=== PATIENT | male | born 1980 | race Caucasian/White ===

== ENCOUNTER 2017-08-30 08:31 | Outpatient (CLI) | payer SELFPAY | END 2017-08-30 08:32 | disposition home or self-care (01) | LOC: LAB 08:31 | DX: Z02.81 Encounter for paternity testing (principal) ==

== ENCOUNTER 2018-09-10 18:11 | Emergency (ER) | payer OTHER ==
[2018-09-10 18:22] VITALS: BP 142/95
--- NOTE | 2018-09-10 18:48 | ED Physician Documentation ---
PD HPI URI - Stated complaint Stated Complaint: SINUS PX/V - Chief complaint Chief Complaint: General - History obtained from History obtained from: Patient - History of Present Illness Timing - onset: Today Timing duration: Days (1) Timing details: Gradual onset Pain level max: 0 Pain level now: 0 Associated symptoms: Nasal congestion, Rhinorrhea, Dry cough. No: Fever, Ear pain, Productive cough Contributing factors: Sick contact Improves by: Rest Worsened by: Activity Recently seen: Not recently seen - Additional information Additional information: Patient states that he tried to go to medical on basis as directed by his commanding officer, but they were unable to see him and sent him here Review of Systems Constitutional: denies: Fever, Chills Respiratory: reports: Cough GI: denies: Vomiting Skin: denies: Rash Musculoskeletal: denies: Neck pain, Back pain PD PAST MEDICAL HISTORY - Past Medical History Cardiovascular: Hypertension - Past Surgical History General: Appendectomy - Present Medications Home Medications: Ambulatory Orders Medication Instructions Recorded Confirmed Benzonatate [Tessalon Perle] 100 - 200 mg PO TID PRN #30 capsule 09/10/18 Cetirizine HCl/Pseudoephedrine 1 each PO BID PRN #30 tab.er.12h 09/10/18 [Zyrtec-D Tablet] - Allergies Allergies/Adverse Reactions: Allergies Allergy/AdvReac Type Severity Reaction Status Date / Time No Known Drug Allergies Allergy Verified 09/10/18 18:18 - Social History Does the pt smoke?: No Smoking Status: Never smoker PD ED PE NORMAL - Vitals Vital signs reviewed: Yes - General General: Alert and oriented X 3, No acute distress - HEENT HEENT: PERRL, Ears normal, Moist mucous membranes, Pharynx benign, Other (Mild facial petechiae) - Neck Neck: Supple, no meningeal sign - Cardiac Cardiac: RRR, Strong equal pulses - Respiratory Respiratory: No respiratory distress, Clear bilaterally - Abdomen Abdomen: Soft, Non tender, Non distended - Derm Derm: Warm and dry, No rash - Neuro Neuro: Alert and oriented X 3 Results - Vitals Vitals: Vital Signs - 24 hr 09/10/18 18:15 Temperature 36.6 C Heart Rate 52 L Respiratory 16 Rate Blood Pressure 142/95 H O2 Saturation 97 Oxygen O2 Source Room air PD MEDICAL DECISION MAKING - ED course Complexity details: considered differential, d/w patient ED course: Patient with what appears to be a viral upper respiratory infection. No evidence of pneumonia. Lungs are clear to auscultation bilaterally. Did have an exceptionally hard coughing fit followed by vomiting earlier today and now has mild petechiae on the face. Tolerating p.o. without difficulty here. No hypoxia. No respiratory distress. Patient counseled regarding signs and symptoms for which I believe and urgent re-evaluation would be necessary. Patient with good understanding of and agreement to plan and is comfortable going home at this time This document was made in part using voice recognition software. While efforts are made to proofread this document, sound alike and grammatical errors may occur. Departure - Departure Disposition: Home, Self Care Clinical Impression: Viral URI with cough Condition: Good Instructions: ED URI Viral Follow-Up: your,doctor in 1 week [Other] Prescriptions: Benzonatate [Tessalon Perle] 100 - 200 mg PO TID PRN #30 capsule PRN Reason: Cough Cetirizine HCl/Pseudoephedrine [Zyrtec-D Tablet] 1 each PO BID PRN #30 tab.er.12h PRN Reason: nasal congestion Comments: Drink plenty of fluids and rest. Return if you worsen. Follow-up with your doctor for further care. Discharge Date/Time: 09/10/18 18:52
== END 2018-09-10 18:52 | disposition home or self-care (01) ==
LOC: ED 18:11
DX: J06.9 Acute upper respiratory infection, unspecified (principal); R23.3 Spontaneous ecchymoses; I10 Essential (primary) hypertension
CPT/HCPCS: 99283

== ENCOUNTER 2019-02-14 09:10 | Emergency (ER) | payer OTHER ==
[2019-02-14 09:21] VITALS: BP 139/102
--- NOTE | 2019-02-14 09:31 | ED Physician Documentation ---
PD HPI BACK INJURY - Stated complaint Stated Complaint: BACK PX - History obtained from History obtained from: Patient - History of Present Illness Location: Upper (mid thoracic area hurting for 3 1/2 weeks without noted injury.) Type of injury: No: Fall, Twist, Blunt / blow Timing - onset: How many weeks ago (3 1/2) Timing - duration: Weeks Timing - details: Gradual onset, Still present, Waxing and waning Quality: Pain, Aching Worsened by: Moving. No: Palpating Associated symptoms: No: Fever, Weakness, Numbness, Incontinent of urine Contributing factors: No: Work related Similar symptoms before: Has not had sx before Recently seen: Clinic (has tried several BP meds in the past that did not work well. He started new one Micardis about 1 1/2 months ago. Back pain started couple weeks after without noted injury. Seen by PCP and the Micardis found to have back pain as infrequent side effect. The med is working well on BP though, so patient did not want to stop it, and was referred for PT. No meds Rx for the pain.) Review of Systems Constitutional: denies: Fever, Chills Nose: denies: Rhinorrhea / runny nose, Congestion Throat: denies: Sore throat Cardiac: denies: Chest pain / pressure Respiratory: denies: Cough GI: denies: Abdominal Pain, Nausea, Vomiting Skin: denies: Rash, Lesions Musculoskeletal: reports: Back pain. denies: Neck pain Neurologic: denies: Focal weakness, Numbness PD PAST MEDICAL HISTORY - Past Medical History Cardiovascular: Hypertension - Past Surgical History General: Appendectomy - Present Medications Home Medications: Ambulatory Orders Medication Instructions Recorded Confirmed Benzonatate [Tessalon Perle] 100 - 200 mg PO TID PRN #30 capsule 09/10/18 Cetirizine HCl/Pseudoephedrine 1 each PO BID PRN #30 tab.er.12h 09/10/18 [Zyrtec-D Tablet] Diclofenac Potassium 50 mg PO BID #15 tablet 02/14/19 Tizanidine HCl 4 mg PO TID PRN #20 capsule 02/14/19 - Allergies Allergies/Adverse Reactions: Allergies Allergy/AdvReac Type Severity Reaction Status Date / Time No Known Drug Allergies Allergy Verified 02/14/19 09:21 - Social History Does the pt smoke?: No Smoking Status: Never smoker PD ED PE NORMAL - Vitals Vital signs reviewed: Yes - General General: Alert and oriented X 3, Well developed/nourished - Neck Neck: Supple, no meningeal sign, No adenopathy - Cardiac Cardiac: RRR, No murmur - Respiratory Respiratory: Clear bilaterally - Abdomen Abdomen: Soft, Non tender - Back Back: No spinal TTP (has tender more to left paraspinous area about left T7. ) - Derm Derm: Normal color, Warm and dry, No rash - Extremities Extremities: No tenderness to palpate - Neuro Neuro: Alert and oriented X 3, No motor deficit, No sensory deficit, Normal speech Results - Vitals Vitals: Vital Signs - 24 hr 02/14/19 09:16 Temperature 36.8 C Heart Rate 67 Respiratory 14 Rate Blood Pressure 139/102 H O2 Saturation 98 Oxygen O2 Source Room air - Rads (name of study) thoracic CT Radiology: Prelim report reviewed (No acute process. ), See rad report Procedures - General procedure General procedure: Trigger point injection with Kenalog and Marcaine at left parathoracic muscle level of T7 after cleansing skin, without complication. PD MEDICAL DECISION MAKING - ED course Complexity details: reviewed results (thoracic CT without acute process seen. ), considered differential (seems muscle strain. But no noted injury. Can check imaging to ensure no occult other process. He is on new medication (Micardis) that does list back pain as a small likelyhood to cause back pain (presume myofascial and Epocrates lists as adverse reaction but not gives percentage).), d/w patient Departure - Departure Disposition: 01 Home, Self Care Clinical Impression: Acute thoracic back pain Qualifiers: Back pain laterality: left Qualified Code(s): M54.6 - Pain in thoracic spine Condition: Stable Record reviewed to determine appropriate education?: Yes Instructions: ED Sprain Thoracic Spine Follow-Up: [facility] [Provider Group] Prescriptions: Diclofenac Potassium 50 mg PO BID #15 tablet Tizanidine HCl 4 mg PO TID PRN #20 capsule PRN Reason: Spasms Comments: Heat and gentle stretching. To physical therapy as arranged by your primary ca re. Use diclofenac anti-inflammatory twice daily for a week and tizanidine muscle relaxant 2-3 times a day for a week as well. I also did a local injection with him steroid and anesthetic. We will see if these improve your pain over the next several days and gone by a week. Follow-up with your primary care this coming week to see how much better you are doing and if other treatments are needed. Discharge Date/Time: 02/14/19 11:15
[2019-02-14] MEDS ORDERED: NAPROXEN 250 MG TABLET PO STA (10:03)
[2019-02-14] MEDS ORDERED: TRIAMCINOLONE 40 MG/ML VIAL IM STA (10:05)
--- NOTE | 2019-02-14 11:00 | CT Report ---
Reason: mid thoracic pain for 3 weeks; no noted injury Procedure Date: 02/14/2019 Accession Number: [id number] / [id number] Procedure: CT - THORACIC SPINE WO CPT Code: Final Report FULL RESULT: EXAM: CT THORACIC SPINE WITHOUT CONTRAST EXAM DATE: 02/14/2019 10:23 AM. CLINICAL HISTORY: Mid thoracic pain for 3 weeks; no noted injury. COMPARISONS: None available. TECHNIQUE: Thin-section axial images were acquired of the thoracic spine from C7 to L1 without contrast. Post-processing: Coronal and sagittal reformats. Other: None. In accordance with CT protocol optimization, one or more of the following dose reduction techniques were utilized for this exam: automated exposure control, adjustment of mA and/or KV based on patient size, or use of iterative reconstructive technique. FINDINGS: Alignment: There is a very slight convex right curvature which could be positional. No other abnormal alignment. Bones: No fracture or bone lesion. Disk Levels/Facets: C7-T1: Unremarkable. T1-T2: Unremarkable. T2-T3: Unremarkable. T3-T4: Unremarkable. T4-T5: Unremarkable. T5-T6: Unremarkable. T6-T7: Unremarkable. T7-T8: Unremarkable. T8-T9: Unremarkable. T9-T10: Unremarkable. T10-T11: Unremarkable. T11-T12: Unremarkable. T12-L1: Unremarkable. Musculature: Normal. No fatty atrophy. Other: There is a calcified granuloma in the right lung and there are calcified right hilar and right paratracheal lymph nodes consistent with old granulomas disease. IMPRESSION: Negative thoracic spine CT. RADIA
== END 2019-02-14 11:15 | disposition home or self-care (01) ==
LOC: ED 09:10
DX: M54.6 Pain in thoracic spine (principal); I10 Essential (primary) hypertension
CPT/HCPCS: 20552; 72128; 99284; A9270

== ENCOUNTER 2019-06-02 16:40 | Emergency (ER) | payer OTHER ==
--- NOTE | 2019-06-02 17:03 | ED Physician Documentation ---
History of Present Illness - Stated complaint Stated Complaint: COUGH, WHEEZING, CHEST PRESSURE - Chief complaint Chief Complaint: Resp - History obtained from History obtained from: Patient (Patient reports having 10 days of cough congestion, wheezing, feeling short of breath, has been progressively getting worse. He denies fevers, chills, nausea, vomiting. He does complain of posttussive emesis. 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 He denies any smoking history. He denies being exposed to any environmental hazards in his lungs. No sick contacts at home.) Review of Systems Constitutional: denies: Fever, Chills, Fatigue, Sweats Ears: reports: Reviewed and negative Nose: reports: Rhinorrhea / runny nose, Congestion. denies: Sinus pressure / pain Throat: denies: Sore throat Cardiac: reports: Reviewed and negative Respiratory: reports: Dyspnea, Cough, Wheezing GI: denies: Nausea, Vomiting, Diarrhea : denies: Dysuria, Frequency, Hesitancy Skin: denies: Rash, Lesions Musculoskeletal: reports: Reviewed and negative Neurologic: reports: Reviewed and negative Psychiatric: reports: Reviewed and negative PD PAST MEDICAL HISTORY - Past Medical History Cardiovascular: Hypertension Respiratory: None - Past Surgical History General: Appendectomy - Present Medications Home Medications: Ambulatory Orders Medication Instructions Recorded Confirmed Albuterol Sulfate [Proair 90 mcg IH Q4HR PRN #1 aer.pw.bas 06/02/19 Digihaler] Benzonatate 200 mg PO TID PRN #20 capsule 06/02/19 Telmisartan [Micardis] 40 mg PO DAILY 06/02/19 06/02/19 - Allergies Allergies/Adverse Reactions: Allergies Allergy/AdvReac Type Severity Reaction Status Date / Time No Known Drug Allergies Allergy Verified 06/02/19 16:43 - Social History Does the pt smoke?: No Smoking Status: Never smoker PD ED PE NORMAL - General General: Alert and oriented X 3, No acute distress, Well developed/nourished - HEENT HEENT: Atraumatic, PERRL, EOMI, Ears normal, Moist mucous membranes, Pharynx benign - Neck Neck: No adenopathy - Cardiac Cardiac: RRR, No murmur - Respiratory Respiratory: No respiratory distress - Abdomen Abdomen: Soft, Non tender, Non distended - Derm Derm: Normal color, Warm and dry, No rash - Neuro Neuro: Alert and oriented X 3, infant lead teacher 2-12 intact - Psych Psych: Normal mood PD ED PE EXPANDED - Respiratory Respiratory: Wheezing, Rhonchi (Throughout bilaterally) Results - Vitals Vitals: Vital Signs - 24 hr 06/02/19 06/02/19 06/02/19 16:44 18:19 18:33 Temperature 36.3 C L 37.1 C Heart Rate 84 82 65 Respiratory 20 16 18 Rate Blood Pressure 142/92 H 139/98 H O2 Saturation 96 99 Oxygen O2 Source Room air - Rads (name of study) No standard instances Radiology: Final report received (Impression: No acute cardiopulmonary disease seen.) PD MEDICAL DECISION MAKING - ED course Complexity details: re-evaluated patient, d/w patient (Discussed with the patient that he has been afebrile during his cough. Antibiotic treatment is not warranted at this time. We will have the patient do albuterol 2 puffs every 4 hours as needed for shortness of breath, and taking Tessalon Perles to help reduce cough.) Departure - Departure Disposition: 01 Home, Self Care Clinical Impression: Bronchitis Condition: Good Instructions: ED Bronchitis Asthmatic Prescriptions: Albuterol Sulfate [Proair Digihaler] 90 mcg IH Q4HR PRN #1 aer.pw.bas PRN Reason: As Needed Per Provider Orders Benzonatate 200 mg PO TID PRN #20 capsule PRN Reason: Cough Comments: Your chest x-ray came back as normal today, it did not show any signs of any pneumonia. Given that you have not had any fevers over the last 10 days during this I am going to treat this as bronchitis. I am going to prescribe you Albuterol MDI to take 1 to 2 puffs every 4 hours for shortness of breath. I am also prescribing you then Benzonotate 200 mg tablets to take up to 3 times a day for cough, I want you to take 1 before bedtime so you can sleep better and not cough all night. Should your symptoms persist over the next week to 10 days or you develop a fever you can return back for reevaluation otherwise follow-up with your PCP for further evaluation and treatment.
[2019-06-02] MEDS ORDERED: IPRATROPIUM/ALBUTEROL 3 ML NEB INH STA (18:00)
[2019-06-02 18:34] VITALS: BP 139/98
--- NOTE | 2019-06-02 18:45 | XRAY Report ---
Reason: cough Procedure Date: 06/02/2019 Accession Number: [id number] / [id number] Procedure: XR - Chest 2 View X-Ray CPT Code: 59569 Final Report FULL RESULT: EXAM: CHEST RADIOGRAPHY EXAM DATE: 06/02/2019 06:14 PM. CLINICAL HISTORY: Cough. Chest tightness for 9 days. COMPARISON: THORACIC SPINE W/O 02/14/2019 10:17 AM. TECHNIQUE: 2 views. FINDINGS: Lungs/Pleura: Small right upper lobe calcified pulmonary nodule again noted. No consolidation, airspace disease, pleural effusion or pneumothorax. Mediastinum: Heart and mediastinal contours are unremarkable. IMPRESSION: No acute cardiopulmonary disease seen. RADIA
== END 2019-06-02 19:01 | disposition home or self-care (01) ==
LOC: ED 16:40
DX: J40 Bronchitis, not specified as acute or chronic (principal); I10 Essential (primary) hypertension
CPT/HCPCS: 71046; 94640; 99283

== ENCOUNTER 2020-03-10 12:34 | Outpatient (CLI) | payer OTHER ==
[2020-03-10 13:46] VITALS: BP 148/100
--- NOTE | 2020-03-10 13:46 | SLEEP CARE CONSULTATION ---
Information from patient questionnaire entered by Aspen Jack. I have reviewed and concur with the information entered by Aspen Jack. This document represents the service I personally performed and the decisions made by me, Elva Wong ARNP. History of Present Illness Service Date and Time: 03/10/2020 1234 Reason for Visit: New patient Chief Complaint: reports: Unrefreshed sleep, Snoring, Excessive daytime sleepiness, Observed pauses in breathing, Fatigue, Frequent awakenings at night Date of Onset: 5 years Usual bedtime: 1030; weekends later Time it takes to fall asleep: 30 min to an hour Snores at night: Yes (When not breathing through mouth, yes) Observed to quit breathing while asleep: No Sleeps alone due to snoring: No Number of times waking at night: 3-4 Reasons for waking at night: reports: Snoring, Gasping for air, Bathroom. denies: Choking Toss, Turn, or Twitch while sleeping: Yes Recalls having dreams: Yes Usually gets out of bed at: 0600; on weekends later like 8 AM Feels refreshed in the morning: No Morning headache: Yes (sometimes; averages 1-2 times a week) Sleepy or fatigued during the day: Yes (extremely) Ever fallen asleep while driving: Yes (no accidents) Takes day naps: Yes (on weekends in afternoons; 1-3 hours) Dreams during day naps: Yes Prior sleep studies: No Additional HPI information: I had the pleasure of seeing SONIA EUBANKS today regarding the possibility of him having a sleep disorder. His current complaints are snoring, observed pauses in breathing, frequent night awakenings, fatigue, unrefreshed sleep and excessive daytime sleepiness. He does have hypertension. He has had some episode of faster heart rate with palpitations and slower heart rate. For the last year he has had more gastrointestinal issues with diarrhea, gas and heartburn that he is not sure what the problem may be but he has told his medical doctor. He has been taking the prescribed blood pressure medication and does not feel it is helping reduce his fatigue as much as his doctor told him it would and thus he came in for evaluation for sleep disorder. - Parasomnia Symptoms Ever been unable to move upon waking from sleep: No Walks in sleep: Yes (in the past, not now) Talks in sleep: Yes Ever acted out dreams in sleep: No Ever felt weak in the knees when startled or emotional: No Bothered by creepy, crawly, restless sensations in legs: No Problems with memory or concentration: Yes (forgets things he was supposed to do; he has reduced concentration ) Subjective Initial Paterson Sleepiness Scale score: 20 (in 2020) Past Medical History Past Medical History: reports: Hypertension, Arrythmia (heart murmur; has had heart rate that goes faster than slower), Other (has gastrointestinal issues for last year, including heartburn; may have acid reflux). 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 Patient is Single and lives in [place]. Have you smoked in the past 12 months: No Alcohol use: Yes Alcohol amount and frequency: 1-2 maybe once a month Caffeine use: Yes Caffeine amount and frequency: 1 cup of coffee in the morning Family History Family history of sleep disordered breathing: Yes (Father) Family Hx Sleep Apnea: Father: Snoring, Sleep apnea - Treated Allergies and Home Medications Drug allergies reviewed: Yes (NKDA) Home medication list reviewed: Yes Allergy and home medication list: Telmisartan Review of Systems Weight gain over past 5 years: 30 Cardiovascular: reports: high blood pressure, palpitations, irregular heart rate or pulse, have to sleep sitting up (sometimes) Gastrointestinal: reports: heartburn (often), diarrhea (often), other (acid reflux often) Neurological: reports: headaches (sometimes) Psychiatric: reports: anxiety (situational) Ear/Nose/Throat: reports: nasal congestion, dry mouth/throat, wisdom teeth removed, other (has a hard time breathing through nose, sally when laying on back). denies: tonsillectomy Endocrine: reports: sluggishness Musculoskeletal: reports: joint pain, neck pain, back pain, muscle pain or cramping Immunologic: reports: allergies to food or environment (may be allergic to mold, unsure) Physical Exam Blood Pressure: 148/100 (hx of hypertension) Cuff size: wrist Heart Rate: 85 O2 Saturation: 97 Height: 5 ft 8.5 in Weight: 230 lb Body Mass Index: 34.4 BMI Classification: Obese Neck circumference: 17 (inches) Nostrils: patent to airflow Turbinates: normal Septum: midline Mouth and throat: narrow oropharynx Uvula visualization: 50% Mallampati Class II Tongue: normal in size Tonsils: 2+ Neck: normal w/o lymphadenopathy or thyromegaly Heart: regular rate and rhythm Lungs: clear bilaterally Impression and Plan 1. Suspected Obstructive Sleep Apnea-Hypopnea Syndrome, as suggested by a history of loud and irregular snoring, observed cessation of breath while asleep, gasping or choking in sleep, morning headache, frequent awakening during the night, unrefreshed sleep, cognitive impairment, and excessive daytime sleepiness. I reviewed with the patient that a narrow oropharynx and obesity are common predisposing factors for obstructive sleep apnea-hypopnea syndrome. I recommend proceeding to polysomnography to confirm the diagnosis and to assess severity. If the patient has significant sleep disordered breathing, a manual CPAP titration study will also be performed to find the optimal treatment pressure. I informed the patient of what the sleep studies involve and after some discussion, obtained agreement to proceed. The pathophysiology of obstructive sleep apnea-hypopnea syndrome was discussed with the patient and health risks of cardiovascular and cerebrovascular disease if not treated. AASM brochure for obstructive sleep apnea-hypopnea syndrome given and reviewed. Risks of drowsy driving discussed in detail and patient advised to avoid long distance driving and to dry chain puller at the first sign of drowsiness. Patient agreed to plan. * Schedule polysomnography +- manual CPAP titration study and return in 1-2 wee ks after the study to discuss result and initiate therapy. * Avoid long distance driving or driving when feeling sleepy. * Avoid alcohol, sedative and muscle relaxant around bedtime. * Attempt to lose weight. * Review instructions provided by trained office staff on how to prepare for the sleep study. * Return for follow-up after sleep study completed. Counseling Topics: Weight loss health impact Visit Type: In Office Time Spent with Patient (minutes): 32 Provider Statement: I spent 100% of the Face to Face Visit with the patient with greater than 50% spent counseling the patient and coordination of care.
== END 2020-03-10 12:35 | disposition home or self-care (01) ==
LOC: SC 12:34
PROVIDERS: ATTEND Nurse Practitioner Family
DX: R06.83 Snoring (principal); R06.81 Apnea, not elsewhere classified; R51.9 Headache, unspecified; G47.8 Other sleep disorders; R41.89 Other symptoms and signs involving cognitive functions and awareness; G47.10 Hypersomnia, unspecified; E66.9 Obesity, unspecified; Z68.34 Body mass index [BMI] 34.0-34.9, adult
CPT/HCPCS: 99203; 99212

== ENCOUNTER 2020-04-05 20:15 | Outpatient (CLI) | payer OTHER | END 2020-04-05 20:16 | disposition home or self-care (01) | LOC: SC 20:15 | PROVIDERS: ATTEND Nurse Practitioner Family | DX: G47.33 Obstructive sleep apnea (adult) (pediatric) (principal); E66.9 Obesity, unspecified; Z68.34 Body mass index [BMI] 34.0-34.9, adult | CPT/HCPCS: 95810 ==

== ENCOUNTER 2020-04-12 09:51 | Outpatient (CLI) | payer OTHER ==
--- NOTE | 2020-04-12 10:42 | SLEEP CARE CONSULTATION ---
Information from patient questionnaire entered by Lizet Godinez. I have reviewed and concur with the information entered by Lizet Godinez. This document represents the service I personally performed and the decisions made by , Elva Wong ARNP. History of Present Illness Service Date and Time: 04/12/2020 0951 Initial [place] Sleepiness Scale score: 20 (in 2020) Current [place] Sleepiness Scale score: 22 Additional HPI information: SONIA EUBANKS returns for follow up and results of the recently performed polysomnography. I explained the pathophysiology behind obstructive sleep apnea. We then spent quite a bit of time discussing different treatment options. For mild obstructive sleep apnea, surgery and oral appliance are alternatives to nasal CPAP therapy but in moderate or severe cases, nasal CPAP is the most effective and reliable treatment. Because apnea is primarily in supine position, then positional management therapy could be effective. Methods discussed such as positioning with pillows, using a T-shirt with tennis balls in the back, and shown commercial products that have a pillow format on back to prevent supine sleep. I reviewed the impact of weight changes on sleep apnea and strongly recommended losing weight. After some discussion, the patient opted to go with the nasal CPAP therapy. Nasal autoCPAP set at [id number] will be ordered with rationale explained. A manual titration study will be ordered if unable to find optimal pressure with office adjustments. I explained how CPAP machine works with sample devices RespirKashs Dreamstation and Atlantium [id number] and what to expect when using the machine. Using CPAP every night in order to get used to it was emphasized. Patient advised to put CPAP mask on before getting into bed so as not to fall asleep without CPAP. To assist acclimation to CPAP use, it could also be used for a short time during day while reading or watching TV. The patient was instructed to call the CPAP supplier to discuss any mechanical problem that may occur. If the mask given is uncomfortable or is difficult to keep on through the night even with adjustment, contact the CPAP supplier as many will replace with another mask style if notified before 30 days. If snoring or perceives is not getting enough air or too much air from the machine, notify this office. [facility] patient education PAP tips reviewed and given to patient. Patient counseled not drink alcohol less than 4 hours before bedtime as it can increase snoring and apnea. Patient was cautioned about risks of drowsy driving until sleepiness symptoms resolve. Sleep Study - Results Type of Sleep Study: Polysomnography Prior sleep studies: No Polysomnography/Home Sleep Study results: IMPRESSION: The quality of the study is good. The patient had normal sleep efficiency. The sleep architecture was normal as well. Respiratory monitoring showed mild obstructive sleep apnea- hypopnea (AHI = 5.8) associated with oxyhemoglobin desaturation and mild hypoxia (iker oxygen saturation of 87 %) but not sleep fragmentation. The respiratory events occurred almost exclusively during supine sleep (supine AHI = 7.6; non-supine = 3.06). Snore was moderate to loud in intensity. There was no significant periodic leg movement of sleep. Cardiac rhythm was normal sinus rhythm without significant arrhythmia. No abnormal behavior (parasomnia) observed during the night. Allergies and Home Medications Home medication list reviewed: Yes (new diuretic medication, can't remember name) Review of Systems Review of systems same as previous: No (awaiting echocardiogram) Physical Exam Heart Rate: 86 O2 Saturation: 98 Height: 5 ft 8.5 in Weight: 232 lb Body Mass Index: 34.7 BMI Classification: Obese Impression and Plan 1. Obstructive Sleep Apnea-Hypopnea Syndrome, mild, with lowest oxygen saturation of 87%. Obviously this is the cause of the patients symptoms of unrefreshed sleep, and excessive daytime sleepiness. Positive pressure therapy could benefit hypertension and heart arrhythmias. As mentioned above, the patient will be started on nasal autoCPAP therapy with pressure set at 4-15 cmH2 O. A manual titration study will be completed if unable to find optimal treatment pressure with office adjustments. Compliance guidelines also reviewed. A copy of compliance guidelines will be given for reference at check out. Because the apnea is more severe supine, I instructed to avoid sleeping supine using pillow positioning until able to start CPAP use. * Nasal auto CPAP therapy, pressure at 4-15 cm H2O. * Attempt to lose weight. * Avoid alcohol consumption near bedtime. * Avoid supine sleep until using CPAP. * The patient is again cautioned about driving until sleepiness completely resolves. * Return one month after CPAP obtained. I will assess response to therapy and compliance at that time. Counseling Topics: Weight loss health impact Visit Type: In Office Time Spent with Patient (minutes): 20 Provider Statement: I spent 100% of the Face to Face Visit with the patient with greater than 50% spent counseling the patient and coordination of care.
== END 2020-04-12 09:52 | disposition home or self-care (01) ==
LOC: SC 09:51
PROVIDERS: ATTEND Nurse Practitioner Family
DX: G73.3 Myasthenic syndromes in other diseases classified elsewhere (principal); E66.9 Obesity, unspecified; Z68.34 Body mass index [BMI] 34.0-34.9, adult
CPT/HCPCS: 99212; 99213

== ENCOUNTER 2020-05-17 13:17 | Emergency (ER) | payer OTHER ==
--- NOTE | 2020-05-17 13:55 | ED Physician Documentation ---
History of Present Illness - Stated complaint Stated Complaint: CHEST PX/SOA - Chief complaint Chief Complaint: Cardiac - Additonal information Additional information: 39-year-old active [place] individual comes to the emergency department for e valuation of sharp chest pain. Occurred about 1 hour prior to arrival. He reports that he felt what he describes as a charley horse in his chest that lasted about 10 to 15 minutes. He endorsed feeling lightheaded but did not have any fainting episodes. He is currently under the treatment of [facility] for hypertension and takes telmisartan. He is also recently started on a diuretic. He states that in the past he has gone to the ER for palpitations and has at one point had an EKG that showed a heart rate greater than 180. Due to chest discomfort and high blood pressure and persistent fatigue he was referred recently to [place] youth program director Dr. Méndez. He reports to me that he had a normal echocardiogram through Dr. Méndez and is scheduled upcoming to have a stress test. This gentleman is a non-smoker no tobacco use. Review of Systems Constitutional: reports: Fatigue. denies: Fever, Chills Eyes: reports: Reviewed and negative Ears: reports: Reviewed and negative Nose: reports: Reviewed and negative Throat: reports: Reviewed and negative Cardiac: reports: Chest pain / pressure, Palpitations. denies: Pedal edema, Calf pain Respiratory: denies: Dyspnea, Cough, Hemoptysis, Wheezing GI: denies: Abdominal Pain, Nausea, Vomiting : denies: Dysuria Skin: denies: Rash, Lesions Musculoskeletal: denies: Neck pain, Back pain PD PAST MEDICAL HISTORY - Past Medical History Past Medical History: Yes Cardiovascular: Hypertension Respiratory: None Neuro: Headaches Endocrine/Autoimmune: None GI: GERD : None HEENT: None Psych: None Musculoskeletal: None Derm: None - Past Surgical History Past Surgical History: Yes General: Appendectomy - Present Medications Home Medications: Ambulatory Orders Medication Instructions Recorded Confirmed Telmisartan [Micardis] 80 mg PO DAILY 06/02/19 05/17/20 - Allergies Allergies/Adverse Reactions: Allergies Allergy/AdvReac Type Severity Reaction Status Date / Time No Known Drug Allergies Allergy Verified 05/17/20 13:34 - Social History Does the pt smoke?: No Smoking Status: Never smoker Does the pt drink ETOH?: No Does the pt have substance abuse?: No - Immunizations Immunizations are current?: Yes - POLST Patient has POLST: No PD ED PE NORMAL - General General: Alert and oriented X 3, No acute distress, Well developed/nourished, Other (mild obesity) - HEENT HEENT: EOMI, Ears normal, Moist mucous membranes - Neck Neck: Supple, no meningeal sign, No adenopathy - Cardiac Cardiac: RRR, No murmur, No gallop, No rub, Strong equal pulses - Respiratory Respiratory: No respiratory distress, Clear bilaterally - Abdomen Abdomen: Normal bowel sounds, Soft, Non tender - Back Back: No CVA TTP - Derm Derm: Normal color, Warm and dry, No rash - Extremities Extremities: No deformity, No tenderness to palpate, Normal ROM s pain - Neuro Neuro: Alert and oriented X 3, health technician 2-12 intact Eye Opening: Spontaneous Motor: Obeys Commands Verbal: Oriented GCS Score: 15 - Psych Psych: Normal mood Results - Vitals Vitals: Vital Signs - 24 hr 05/17/20 05/17/20 05/17/20 13:28 13:43 14:00 Temperature 36.6 C 36.7 C Heart Rate 99 102 H 95 Respiratory 20 20 27 H Rate Blood Pressure 145/80 H 148/89 H 125/82 H O2 Saturation 99 97 96 05/17/20 15:00 Temperature Heart Rate 88 Respiratory 19 Rate Blood Pressure 134/87 H O2 Saturation 94 Oxygen O2 Source Room air - EKG (time done) 1325 Rate: Rate (enter#) (79) Rhythm: NSR Intervals: Normal PA. No: Prolonged QT QRS: Poor R wave progression Ischemia: Q waves (inferior leads) Compare to prior EKG: Old EKG unavailable Computer interpretation: Agree with computer - Labs Labs: Laboratory Tests 05/17/20 05/17/20 05/17/20 14:00 14:00 14:00 WBC 6.0 RBC 5.13 Hgb 16.2 Hct 44.2 MCV 86.2 MCH 31.6 H MCHC 36.7 H RDW 12.1 Plt Count 170 MPV 10.6 Neut # (Auto) 3.9 Lymph # (Auto) 1.[address] [place] # (Auto) 0.5 Eos # (Auto) 0.1 Baso # (Auto) 0.1 Absolute Nucleated RBC 0.00 Nucleated RBC % 0.0 Sodium 136 Potassium 4.0 Chloride 100 L Carbon Dioxide 26 Anion Gap 10.0 BUN 22 H Creatinine 0.9 Estimated GFR (MDRD) 95 Glucose 121 H Calcium 9.5 Phosphorus 3.5 Magnesium 2.0 Total Bilirubin 1.0 AST 27 ALT 71 H Alkaline Phosphatase 72 Troponin I High Sens < 2.3 L Total Protein 7.7 Albumin 4.6 Globulin 3.1 Albumin/Globulin Ratio 1.5 Lipase 36 TSH 05/17/20 14:00 WBC RBC Hgb Hct MCV MCH MCHC RDW Plt Count MPV Neut # (Auto) Lymph # (Auto) [place] # (Auto) Eos # (Auto) Baso # (Auto) Absolute Nucleated RBC Nucleated RBC % Sodium Potassium Chloride Carbon Dioxide Anion Gap BUN Creatinine Estimated GFR (MDRD) Glucose Calcium Phosphorus Magnesium Total Bilirubin AST ALT Alkaline Phosphatase Troponin I High Sens Total Protein Albumin Globulin Albumin/Globulin Ratio Lipase TSH 1.87 - Rads (name of study) CXR Radiology: Final report received (no acute process) PD MEDICAL DECISION MAKING - ED course Complexity details: reviewed results, re-evaluated patient, considered differential, d/w patient ED course: 39-year-old male has a pre-existing history of hypertension presents to the emergency department for evaluation of chest pain that he described like a charley horse. He does report a history of an unclear tachy arrhythmia in the past but is not taking any beta-blockers.. Due to hypertension and recurrent chest pain he has been referred to Dr. Méndez. Patient verbally reports to me that recently had an echocardiogram that was unremarkable and is scheduled for an upcoming stress test. Here today on EKG it is nonischemic. High-sensitivity troponin is negative. Screening CBC electrolytes and chest x-ray are also unremarkable. He has been free of chest pain while here in the emergency department and has not developed any abnormal arrhythmia. In addition pt's Wells score for PE is very low. defer CT chest We did attempt to get in contact with Dr. Méndez multiple times but he did not return the page. However this gentleman's heart score is low and he will be discharged to continue to follow-up with [place] [facility] cardiology as an outpatient. Emergent return precautions were discussed. Departure - Departure Disposition: 01 Home, Self Care Clinical Impression: Chest pain Qualifiers: Chest pain type: unspecified Qualified Code(s): R07.9 - Chest pain, unspecified Condition: Stable Record reviewed to determine appropriate education?: Yes Instructions: ED Chest Pain Atypical Unkn Cause Follow-Up: Soila Méndez MD [Physician No Access] - Comments: You are seen today in the emergency department for chest pain. As we discussed your EKG, screening labs and chest x-ray are all without worrisome findings. It is very important that you continue to follow-up with your youth program director to have the stress test obtained. If you have any fainting episodes, chest pain that radiates to arm or jaw, causes nausea or you feel your symptoms are not well controlled please return to the ER for a second look.
--- NOTE | 2020-05-17 14:06 | XRAY Report ---
PROCEDURE: Chest 1 View X-Ray INDICATIONS: Chest Pain TECHNIQUE: One view of the chest was acquired. COMPARISON: 06/02/2019 chest x-ray FINDINGS: Surgical changes and devices: None. Lungs and pleura: No pleural effusions or pneumothorax. Lungs are clear. Mediastinum: Mediastinal contours appear normal. Heart size is normal. Bones and chest wall: No suspicious bony lesions. Overlying soft tissues appear unremarkable. IMPRESSION: No acute process. Reviewed by: Ruby Clark MD on 05/17/2020 2:05 PM [facility] Approved by: Ruby Clark MD on 05/17/2020 2:05 PM [facility] Station ID: [id number]
[2020-05-17 14:16] LABS: BASOPHILS # (AUTO) 0.1 10^3/uL (0.0-0.1); EOSINOPHILS # (AUTO) 0.1 10^3/uL (0.0-0.7); HCT - HEMATOCRIT 44.2 % (42.0-52.0); HGB - HEMOGLOBIN 16.2 g/dL (14.0-18.0); LYMPHOCYTES # (AUTO) 1.4 10^3/uL (1.5-3.5); LYMPHOCYTES % (AUTO) 23.9 %; MEAN CORPUSCULAR HEMOGLOBIN 31.6 pg (27.0-31.0); MEAN CORPUSCULAR HGB CONC 36.7 g/dL (32.0-36.0); MEAN CORPUSCULAR VOLUME 86.2 fL (80.0-94.0); MEAN PLATELET VOLUME 10.6 fL (7.4-11.4); MONOCYTES # (AUTO) 0.5 10^3/uL (0.0-1.0); MONOCYTES % (AUTO) 7.8 %; NEUTROPHILS # (AUTO) 3.9 10^3/uL (1.5-6.6); PLT - PLATELET COUNT 170 10^3/uL (130-450); RED BLOOD COUNT 5.13 10^6/uL (4.70-6.10); RED CELL DISTRIBUTION WIDTH 12.1 % (12.0-15.0)
[2020-05-17 14:36] LABS: ALBUMIN 4.6 g/dL (3.2-5.5); ALBUMIN/GLOBULIN RATIO 1.5 (1.0-2.2); CALCIUM 9.5 mg/dL (8.5-10.3); CREATININE 0.9 mg/dL (0.6-1.2); PHOSPHORUS 3.5 mg/dL (2.5-4.6); TOTAL PROTEIN 7.7 g/dL (6.7-8.2)
[2020-05-17] MEDS ORDERED: fentaNYL 100 MCG/2 ML VIAL IVP STA (15:36)
[2020-05-17 16:53] VITALS: BP 145/95
== END 2020-05-17 16:54 | disposition home or self-care (01) ==
LOC: ED 13:17
DX: R07.9 Chest pain, unspecified (principal); I10 Essential (primary) hypertension
CPT/HCPCS: 36415; 80053; 83690; 83735; 84100; 84443; 84484; 85025; 93005; 99284

== ENCOUNTER 2020-06-08 11:33 | Outpatient (CLI) | payer OTHER ==
--- NOTE | 2020-06-08 12:17 | SLEEP CARE CONSULTATION ---
Information from patient questionnaire entered by Lizet Godinez. I have reviewed and concur with the information entered by Lizet Godinez. This document represents the service I personally performed and the decisions made by , Elva Wong ARNP. History of Present Illness Service Date and Time: 06/08/2020 1133 Previous diagnosis: Mild, Obstructive Sleep Apnea-Hypopnea Syndrome AHI: 5.8 (in 2020) Reason for follow up: first compliance Equipment type: CPAP Equipment obtained from: [employer] (got initial supplies) Mask style: Full face Backup mask available: No (will keep old mask once replaced) Last cushion change: 1 month Prior sleep studies: Yes Year and Where: 2020 - [facility] Type of Sleep Study: Polysomnography HPI additional information: SONIA EUBANKS was diagnosed to have mild, AHI 5.8, obstructive sleep apnea- hypopnea syndrome and returned today for CPAP therapy first compliance follow- up. CPAP Compliance Data - Data Reviewed with Patient Average duration of nightly device use: 3 hr 43 min Compliance rate %: 40 Current pressure setting (cmH2O): 4-7 Humidity settin Average residual AHI: 1.2 Central apnea: 0.1 Obstructive apnea: 0.5 Subjective Missed days of use due to: reports: mask issues, other (duty) Patient concerns: reports: mask leak noise, dry mouth, nose, throat (3-4 times only), other (was getting used to force of air pressure). denies: aerophagia, mask discomfort, air blowing in eyes, condensation in mask/hose, nasal congestion, epistaxis Observed to snore while using device: No Current pressure setting perceived as: comfortable On therapy, patient: reports: sleeping better, awakening more refreshed, being more awake and alert during the day, more rested overall, other (feels like he is breathing deeper and better/naturally even when not on machine, sally in AM). denies: drowsiness while driving Initial [place] Sleepiness Scale score: 20 (in 2019) Current [place] Sleepiness Scale score: 18 Allergies and Home Medications Home medication list reviewed: Yes (Amlodipine 5 mg) Review of Systems Review of systems same as previous: No (Echogram, stress test done) Physical Exam Heart Rate: 87 O2 Saturation: 98 Height: 5 ft 8 in Weight: 233 lb Body Mass Index: 35.4 BMI Classification: Obese Impression and Plan 1. Obstructive Sleep Apnea-Hypopnea Syndrome, mild, with poor treatment compliance and good apnea control. On CPAP therapy, the patient has better sleep quality and is more rested overall. He has been getting more used to the pressure and able to tolerate it for the required 4 hours. Compliance guidelines reviewed for insurance coverage. Patient was counseled on the difference between meeting compliance and optimal use of CPAP. Optimal use of CPAP is use of CPAP with all sleep to obtain maximum benefit of treatment. Patient is encouraged to use CPAP with all sleep. He has good control of apnea and pressure is comfortable, we will continue pressure setting at current settings. Patient's apnea severity and rationale for treatment to reduce apnea, improve sleep quality and reduce cardiovascular and cerebrovascular events was reviewed. I also reviewed the benefit of consistent device use of CPAP for hypertension and arrhythmia. * Continue autoCPAP pressure at 4-7 cmH2O * Notify me if snoring with mask or feeling that the pressure is too much or too little * Attempt to lose weight * Call this office if any problems using CPAP * Return for follow up in 1-2 months, or sooner if concerns arise Counseling Topics: Spare mask, Weight loss health impact Visit Type: In Office Time Spent with Patient (minutes): 26 Provider Statement: I spent 100% of the Face to Face Visit with the patient with greater than 50% spent counseling the patient and coordination of care.
--- OUTSIDE RECORDS SUMMARY | 2020-06-14 23:47 | EXTERNAL MEDICAL SUMMARY RPT | Continuity of Care Document ---
:1980 Demographics Phone Unavailable Preferred Language [place] Marital Status Unknown [employer] Affiliation Unknown Race Unknown Ethnic Group Unknown Author Organization [facility] Address [address] [place] [address] Phone Problems date description facility [id number] Dyspnea, unspecified [facility] Social History date description facility [id number]
== END 2020-06-08 11:34 | disposition home or self-care (01) ==
LOC: SC 11:33
PROVIDERS: ATTEND Nurse Practitioner Family
DX: G47.33 Obstructive sleep apnea (adult) (pediatric) (principal); E66.9 Obesity, unspecified; Z68.34 Body mass index [BMI] 34.0-34.9, adult
CPT/HCPCS: 99212; 99213

== ENCOUNTER 2020-07-08 13:16 | Outpatient (CLI) | payer OTHER ==
--- NOTE | 2020-07-08 13:58 | SLEEP CARE CONSULTATION ---
Information from patient questionnaire entered by Aspen Jack. I have reviewed and concur with the information entered by Aspen Jack. This document represents the service I personally performed and the decisions made by , Elva Wong ARNP. History of Present Illness Service Date and Time: 07/08/2020 1316 Previous diagnosis: Mild, Obstructive Sleep Apnea-Hypopnea Syndrome AHI: 5.8 Reason for follow up: one month Equipment obtained from: [employer] ([place]; getting supplies as needed) Mask style: Full face Backup mask available: No (will keep old mask when replaced) Last cushion change: 2 month Prior sleep studies: No Year and Where: 2020 [facility] Type of Sleep Study: Polysomnography HPI additional information: SONIA EUBANKS was diagnosed to have mild, AHI 5.8, obstructive sleep apnea- hypopnea syndrome and returned today for CPAP therapy one month follow-up. CPAP Compliance Data - Data Reviewed with Patient Average duration of nightly device use: 4 h 13 min Compliance rate %: 67 Current pressure setting (cmH2O): 4-7 Average residual AHI: 1.2 Average large leak: 4.9 L/min Subjective Missed days of use due to: reports: mask issues, other Patient concerns: reports: other (Sleep schedule, snore while using device). denies: aerophagia, mask discomfort, air blowing in eyes, mask leak noise, condensation in mask/hose, nasal congestion, dry mouth, nose, throat, epistaxis Observed to snore while using device: No (only once) Current pressure setting perceived as: comfortable On therapy, patient: reports: sleeping better, awakening more refreshed, being more awake and alert during the day, more rested overall. denies: drowsiness while driving Initial [place] Sleepiness Scale score: 20 (in 2020) Current [place] Sleepiness Scale score: 13 Allergies and Home Medications Drug allergies reviewed: Yes (NKDA) Home medication list reviewed: Yes (no new meds) Review of Systems Review of systems same as previous: Yes (no changes) Physical Exam Heart Rate: 75 O2 Saturation: 98 Height: 5 ft 8 in Weight: 231 lb Weight change since last visit: 2 lb loss Body Mass Index: 35.1 BMI Classification: Obese Impression and Plan 1. Obstructive Sleep Apnea-Hypopnea Syndrome, mild, with fair treatment compliance and good apnea control. On CPAP therapy, the patient has better sleep quality and is more rested overall. He has significant improvement of his sleep apnea and is getting used to/satisfied with his treatment. He has had minimal issues and denies aerophagia, mask discomfort, epistaxis, oral dryness or nasal congestion. He needs to bring up his compliance from 67% to 70% or more, I will have him follow up in 1-2 months to recheck his compliance. He has been trying to reduce processed foods from his diet in the last 2 months and has lost a few pounds. I encouraged him to continue improving his diet and increase activity to lose weight. He voiced understanding. Patient's apnea severity and rationale for treatment to reduce apnea, improve sleep quality and reduce cardiovascular and cerebrovascular events was reviewed. I also reviewed the benefit of consistent device use of CPAP for hypertension, and arrhythmia. * Continue auto CPAP pressure at 4-7 cmH2O * Notify me if snoring with mask or feeling that the pressure is too much or too little * Attempt to lose weight * Call this office if any problems using CPAP * Return for follow up in 1-2 months, or sooner if concerns arise Counseling Topics: Spare mask, Weight loss health impact Visit Type: In Office Time Spent with Patient (minutes): 21 Provider Statement: I spent 100% of the Face to Face Visit with the patient with greater than 50% spent counseling the patient and coordination of care.
== END 2020-07-08 13:17 | disposition home or self-care (01) ==
LOC: SC 13:16
PROVIDERS: ATTEND Nurse Practitioner Family
DX: G47.33 Obstructive sleep apnea (adult) (pediatric) (principal); E66.9 Obesity, unspecified; Z68.35 Body mass index [BMI] 35.0-35.9, adult
CPT/HCPCS: 99212; 99213

== ENCOUNTER 2020-08-12 08:49 | Outpatient (CLI) | payer OTHER ==
--- NOTE | 2020-08-12 09:08 | SLEEP CARE CONSULTATION ---
Information from patient questionnaire entered by Lizet Godinez. I have reviewed and concur with the information entered by Lizet Godinez. This document represents the service I personally performed and the decisions made by , Elva Wong ARNP. History of Present Illness Service Date and Time: 08/12/2020 0849 Previous diagnosis: Mild, Obstructive Sleep Apnea-Hypopnea Syndrome AHI: 5.8 (in 2020) Reason for follow up: one month Equipment type: CPAP Equipment obtained from: [employer] (getting supplies as needed) Mask style: Full face Backup mask available: No (will keep old mask when replaced) Prior sleep studies: Yes Year and Where: 2020 - [facility] Type of Sleep Study: Polysomnography HPI additional information: SONIA EUBANKS was diagnosed to have mild, AHI 5.8, obstructive sleep apnea- hypopnea syndrome and returned today for CPAP therapy one month follow-up. CPAP Compliance Data - Data Reviewed with Patient Average duration of nightly device use: 4 hr 44 min Compliance rate %: 57 Current pressure setting (cmH2O): 4-7 Humidity settin Average residual AHI: 1.2 Central apnea: 0.2 Obstructive apnea: 0.6 Subjective Missed days of use due to: reports: other (allergies increased nasal congestion and unable to use machine) Patient concerns: reports: nasal congestion. denies: aerophagia, mask discomfort, air blowing in eyes, mask leak noise, condensation in mask/hose, dry mouth, nose, throat, epistaxis, other Observed to snore while using device: No Current pressure setting perceived as: comfortable On therapy, patient: reports: sleeping better, awakening more refreshed, being more awake and alert during the day, more rested overall. denies: drowsiness while driving Initial [place] Sleepiness Scale score: 20 (in 2019) Current [place] Sleepiness Scale score: 11 Allergies and Home Medications Home medication list reviewed: Yes (no changes) Review of Systems Review of systems same as previous: Yes (no changes) Physical Exam Heart Rate: 66 O2 Saturation: 98 Height: 5 ft 8 in Weight: 234 lb Body Mass Index: 35.6 BMI Classification: Obese Impression and Plan 1. Obstructive Sleep Apnea-Hypopnea Syndrome, mild, with fair treatment compliance and good apnea control. On CPAP therapy, the patient has better sleep quality and is more rested overall. He was unable to bring up his compliance because of allergies causing nasal congestion and sneezing. He had difficulty breathing in the mask with the nasal congestion. Nasal congestion can be reduced with increasing the CPAP humidity as shown on sample device. The heated hose can be adjusted higher if condensation with higher humidity setting. Saline nasal spray can be used prior to CPAP to clear nasal secretions and wash off any nasal allergens to facilitate nasal breathing. In addition, a steamy shower before bed will often assist nasal drainage. He voiced understanding and agreement with plan. I will have him return for re-evaluation of his compliance. Patient's apnea severity and rationale for treatment to reduce apnea, improve sleep quality and reduce cardiovascular and cerebrovascular events was reviewed. I also reviewed the benefit of consistent device use of CPAP for hypertension, and arrhythmia. * Continue auto CPAP pressure at 4-7 cmH2O * Notify me if snoring with mask or feeling that the pressure is too much or too little * Attempt to lose weight * Call this office if any problems using CPAP * Return for follow up in 1-2 months, or sooner if concerns arise Counseling Topics: Spare mask, Weight loss health impact Visit Type: In Office Time Spent with Patient (minutes): 15 Provider Statement: I spent 100% of the Face to Face Visit with the patient with greater than 50% spent counseling the patient and coordination of care.
== END 2020-08-12 08:50 | disposition home or self-care (01) ==
LOC: SC 08:49
PROVIDERS: ATTEND Nurse Practitioner Family
DX: G47.33 Obstructive sleep apnea (adult) (pediatric) (principal); E66.9 Obesity, unspecified; Z68.35 Body mass index [BMI] 35.0-35.9, adult
CPT/HCPCS: 99212

== ENCOUNTER 2023-02-26 07:02 | Emergency (ER) | payer OTHER ==
[2023-02-26 07:29] VITALS: O2SAT 98
--- NOTE | 2023-02-26 07:56 | ED Physician Documentation ---
PD HPI URI - Stated complaint Stated Complaint: HEAD PX/CONGESTION - Chief complaint Chief Complaint: General - History obtained from History obtained from: Patient - History of Present Illness Timing - onset: How many days ago (3) Timing duration: Days (3) Timing details: Abrupt onset, Still present (has increased cough and trouble sleeping. Frontal headache.) Associated symptoms: Chills, Nasal congestion, Sore throat, Dry cough, Other (headache) Similar symptoms before: Has not had sx before Review of Systems Constitutional: reports: Fever, Chills, Myalgias, Fatigue Nose: reports: Rhinorrhea / runny nose, Sinus pressure / pain Throat: reports: Sore throat Respiratory: reports: Cough GI: reports: Nausea, Diarrhea. denies: Vomiting PD PAST MEDICAL HISTORY - Past Medical History Past Medical History: Yes Cardiovascular: Hypertension Respiratory: None Neuro: Headaches Endocrine/Autoimmune: None GI: GERD : None HEENT: None Psych: None Musculoskeletal: None Derm: None - Past Surgical History Past Surgical History: Yes General: Appendectomy - Present Medications Home Medications: Ambulatory Orders Medication Instructions Recorded Confirmed Telmisartan [Micardis] 80 mg PO DAILY 06/02/19 02/26/23 HYDROcod/ACETAM 5/325 [Fortuna 5/325] 1 ea PO Q6H PRN #10 tablet 02/26/23 Ondansetron Odt [Zofran] 4 mg TL Q6H PRN #10 tablet 02/26/23 dexAMETHasone [Decadron] 4 mg PO DAILY #5 tablet 02/26/23 - Allergies Allergies/Adverse Reactions: Allergies Allergy/AdvReac Type Severity Reaction Status Date / Time No Known Drug Allergies Allergy Verified 02/26/23 07:20 - Social History Does the pt smoke?: No Smoking Status: Never smoker Does the pt drink ETOH?: Yes Does the pt have substance abuse?: No - Immunizations Immunizations are current?: Yes - POLST Patient has POLST: No PD ED PE NORMAL - Vitals Vital signs reviewed: Yes - General General: Alert and oriented X 3, Well developed/nourished - HEENT HEENT: Ears normal, Pharynx benign - Neck Neck: Supple, no meningeal sign, No adenopathy - Cardiac Cardiac: RRR, No murmur - Respiratory Respiratory: No respiratory distress, Clear bilaterally Results - Vitals Vitals: Oxygen O2 Source Room air - Labs Labs: Laboratory Tests 02/26/23 07:25 Nasal Adenovirus (PCR) NOT DETECTED Nasal B. parapertussis DNA (PCR) NOT DETECTED Nasal Coronavir 229E PCR NOT DETECTED Nasal Coronavir HKU1 PCR NOT DETECTED Nasal Coronavir NL63 PCR NOT DETECTED Nasal Coronavir OC43 PCR NOT DETECTED Nasal Enterovir/Rhinovir PCR NOT DETECTED Nasal Influ A H1 2009 PCR DETECTED A Nasal Influenza B PCR NOT DETECTED Nasal Parainfluen 1 PCR NOT DETECTED Nasal Parainfluen 2 PCR NOT DETECTED Nasal Parainfluen 3 PCR NOT DETECTED Nasal Parainfluen 4 PCR NOT DETECTED Nasal RSV (PCR) NOT DETECTED Nasal B.pertussis DNA PCR NOT DETECTED Nasal C.pneumoniae (PCR) NOT DETECTED Migue Human Metapneumo PCR NOT DETECTED Nasal M.pneumoniae (PCR) NOT DETECTED Nasal SARS-CoV-2 (PCR) NOT DETECTED PD Medical Decision Making - ED course Complexity details: reviewed results (has flu A. does not seem encephalopathic. Has headache and nausea as main worsening complaints. Can try to improve symtpoms with anti-inflammatories and cough med. Has had symptoms for 3 days. Unlikely to benefit from Tamiflu. ), considered differential, d/w patient Departure - Departure Disposition: 01 Home, Self Care Clinical Impression: Acute viral syndrome, Nausea Headache Qualifiers: Headache type: unspecified Headache chronicity pattern: acute headache Intractability: not intractable Qualified Code(s): R51.9 - Headache, unspecified Condition: Stable Instructions: ED Viral Syndrome Prescriptions: dexAMETHasone [Decadron] 4 mg PO DAILY #5 tablet HYDROcod/ACETAM 5/325 [Fortuna 5/325] 1 ea PO Q6H PRN #10 tablet PRN Reason: Pain Ondansetron Odt [Zofran] 4 mg TL Q6H PRN #10 tablet PRN Reason: Nausea / Vomiting Comments: This sounds likely a flulike illness. Your respiratory viral PCR test is still pending. It does seem to be taking a little bit longer on the results. We c ould have you off to be home and call you with the results and a little while or you could look it up on the patient portal [facility] test results. At this point would be largely treating the symptoms for most of the virus illnesses. You could use a dancer and if needed for nausea says you are feeling better that way and can stay better hydrated and fed. That should help general symptoms as well as headache. Continue with some anti-inflammatory such as ibuprofen 2 or 3 times daily. If it is insufficient for headache and pains, you can add Tylenol 500 650 mg every 4-6 hours if needed or hydrocodone/acetaminophen if needed for worse headache/pain. I would anticipate this being short-term in the next day or 2 for the worst of the symptoms. Other anti-inflammatories such as a steroid and anti-inflammatory can help symptoms often as well. I wrote a prescription for several days of that 2. I sent your prescriptions to [facility] your preferred pharmacy. Off work presumably for today in the next couple of days as needed. Activity as tolerated. I am prescribing a short course of narcotic pain medication for you. These are potentially dangerous and addictive medications that should be used carefully. These medications may constipate you. Take an [id number] stool softener such as docusate twice daily with plenty of water while taking these medications. If you go 24 hours without a bowel movement, take [id number] MiraLAX, per package instructions. Do not drink or drive while taking these medications. If you received narcotic or sedating medications while in the emergency department do not drive for 24 hours. Store this medication in a safe, secure place and out of reach of children. It is a violation of federal law to give or sell this medication to another person or to use in a manner other than prescribed. The ED will not refill narcotic prescriptions, including prescriptions lost or stolen. You can dispose of unwanted medications at the [facility]'s office or at several pharmacies such as [facility]. Forms: PCP List, Activity restrictions Discharge Date/Time: 02/26/23 09:14
[2023-02-26] MEDS ORDERED: ONDANSETRON ODT 4 MG TABLET TL STA (08:21)
[2023-02-26] MEDS ORDERED: HYDROcod/ACETAM 5/325 MG TABLET PO STA (08:21)
[2023-02-26] MEDS ORDERED: dexAMETHasone 4 MG TABLET PO STA (08:21)
[2023-02-26 09:10] LABS: B. PARAPERTUSSIS- RESP PCR PAN NOT DETECTED; B. PERTUSSIS- RESP PCR PANEL NOT DETECTED; C. PNEUMONIAE- RESP PCR PANEL NOT DETECTED; CORONAVIRUS 229E-RESP PCR NOT DETECTED; CORONAVIRUS HKU1-RESP PCR NOT DETECTED; CORONAVIRUS NL63-RESP PCR NOT DETECTED; CORONAVIRUS OC43-RESP PCR NOT DETECTED; HUMAN METAPNEUMOVIRUS NOT DETECTED; INFLUENZA A H1 2009- RESP PCR DETECTED; INFLUENZA B - RESP PCR PANEL NOT DETECTED; M. PNEUMONIAE- RESP PCR PANEL NOT DETECTED; PARAINFLUENZA VIRUS 1 NOT DETECTED; PARAINFLUENZA VIRUS 2 NOT DETECTED; PARAINFLUENZA VIRUS 3 NOT DETECTED; PARAINFLUENZA VIRUS 4 NOT DETECTED; RHINOVIRUS/ENTEROVIRUS NOT DETECTED; RSV- RESP PCR PANEL NOT DETECTED; SARS-CoV-2 -RESP PCR PANEL NOT DETECTED
[2023-02-26 09:18] VITALS: BP 184/113
== END 2023-02-26 09:14 | disposition home or self-care (01) ==
LOC: ED 07:02
DX: B34.9 Viral infection, unspecified (principal); R11.0 Nausea; R51.9 Headache, unspecified; I10 Essential (primary) hypertension; Z11.52 Encounter for screening for COVID-19; Z79.899 Other long term (current) drug therapy
CPT/HCPCS: 87633; 99283; A9270; J8540; Q0162

== ENCOUNTER 2023-09-19 10:31 | Emergency (ER) | payer OTHER ==
[2023-09-19 11:17] VITALS: BP 147/91; O2SAT 99
[2023-09-19 11:47] LABS: BASOPHILS % (AUTO) 0.6 %; EOSINOPHILS # (AUTO) 0.1 10^3/uL (0.0-0.7); HCT - HEMATOCRIT 43.4 % (42.0-52.0); HGB - HEMOGLOBIN 15.3 g/dL (14.0-18.0); LYMPHOCYTES # (AUTO) 1.7 10^3/uL (1.5-3.5); LYMPHOCYTES % (AUTO) 24.7 %; MEAN CORPUSCULAR HEMOGLOBIN 30.4 pg (27.0-31.0); MEAN CORPUSCULAR HGB CONC 35.3 g/dL (32.0-36.0); MEAN CORPUSCULAR VOLUME 86.3 fL (80.0-94.0); MEAN PLATELET VOLUME 10.3 fL (7.4-11.4); MONOCYTES # (AUTO) 0.5 10^3/uL (0.0-1.0); MONOCYTES % (AUTO) 6.7 %; NEUTROPHILS # (AUTO) 4.7 10^3/uL (1.5-6.6); NEUTROPHILS % (AUTO) 66.7 %; PLT - PLATELET COUNT 171 10^3/uL (130-450); RED BLOOD COUNT 5.03 10^6/uL (4.70-6.10); RED CELL DISTRIBUTION WIDTH 11.9 % (12.0-15.0)
[2023-09-19 11:58] LABS: ALBUMIN 4.6 g/dL (3.2-5.5); ALBUMIN/GLOBULIN RATIO 1.6 (1.0-2.2); BILIRUBIN,TOTAL 0.8 mg/dL (0.2-1.0); CALCIUM 9.9 mg/dL (8.5-10.3); CREATININE 0.9 mg/dL (0.6-1.3); MAGNESIUM 1.9 mg/dL (1.7-2.3); POTASSIUM 4.1 mmol/L (3.5-4.5); TOTAL PROTEIN 7.5 g/dL (6.4-8.9)
--- NOTE | 2023-09-19 12:28 | ED Physician Documentation ---
PD HPI HEADACHE - Stated complaint Stated Complaint: DIZZY,FATIGUE - Chief complaint Chief Complaint: General - History obtained from History obtained from: Patient - History of Present Illness Timing - onset: How many months ago (he states he has had fatigue regularly for many months. Sleepy during the day as well. Eval by PCP with labs and had sleep study showing qualifying for CPAP. Has been using CPAP for month or two and states fatigue not improved at all. Also feeling frequent headaches with light sensitivity, nausea.) Timing - onset during: Light activity Timing - duration: Months Timing - details: Gradual onset, Still present, Waxing and waning Location: Global Quality: Throbbing, Aching Associated symptoms: Nausea. No: Fever, Stiff neck, Vomiting Improved by: Dark room Worsened by: Light, Noise Contributing factors: Trauma (he states he had impact to head with concussive symptoms about 5-6 years ago. Wonders if that could contribute to heaaches now.). No: Anticoagulated, Recent illness Similar symptoms before: No diagnosis Review of Systems Constitutional: denies: Fever, Chills Nose: denies: Rhinorrhea / runny nose, Congestion Throat: denies: Sore throat Respiratory: denies: Cough PD PAST MEDICAL HISTORY - Past Medical History Past Medical History: Yes Cardiovascular: Hypertension Respiratory: None Neuro: Headaches Endocrine/Autoimmune: None GI: GERD : None HEENT: None Psych: None Musculoskeletal: None Derm: None - Past Surgical History Past Surgical History: Yes General: Appendectomy - Present Medications Home Medications: Ambulatory Orders Medication Instructions Recorded Confirmed Telmisartan [Micardis] 80 mg PO DAILY 06/02/19 02/26/23 Spironolact/Hydrochlorothiazid 15 mg PO DAILY 09/19/23 [Spironolactone-Hctz 25-25 Tab] - Allergies Allergies/Adverse Reactions: Allergies Allergy/AdvReac Type Severity Reaction Status Date / Time No Known Drug Allergies Allergy Verified 09/19/23 11:09 - Social History Does the pt smoke?: No Smoking Status: Never smoker Does the pt drink ETOH?: Yes Does the pt have substance abuse?: No - Immunizations Immunizations are current?: Yes - POLST Patient has POLST: No PD ED PE NORMAL - Vitals Vital signs reviewed: Yes - General General: Alert and oriented X 3, No acute distress, Well developed/nourished - HEENT HEENT: Atraumatic, PERRL, EOMI, Pharynx benign - Neck Neck: Supple, no meningeal sign, No adenopathy - Cardiac Cardiac: RRR, No murmur - Respiratory Respiratory: Clear bilaterally - Derm Derm: Normal color, Warm and dry - Neuro Neuro: Alert and oriented X 3, ham pumper 2-12 intact, No motor deficit, No sensory deficit Eye Opening: Spontaneous Motor: Obeys Commands Verbal: Oriented GCS Score: 15 Results - Vitals Vitals: Vital Signs - 24 hr 09/19/23 10:57 Temperature 36.8 C Heart Rate 71 Respiratory 16 Rate Blood Pressure 147/91 H O2 Saturation 99 Oxygen O2 Source Room air - Labs Labs: Laboratory Tests 09/19/23 09/19/23 09/19/23 11:42 11:42 11:42 WBC 7.0 RBC 5.03 Hgb 15.3 Hct 43.4 MCV 86.3 MCH 30.4 MCHC 35.3 RDW 11.9 L Plt Count 171 MPV 10.3 Neut # (Auto) 4.7 Lymph # (Auto) 1.7 Gove # (Auto) 0.5 Eos # (Auto) 0.1 Baso # (Auto) 0.0 Absolute Nucleated RBC 0.00 Nucleated RBC % 0.0 Sodium 138 Potassium 4.1 Chloride 104 Carbon Dioxide 29 Anion Gap 5.0 L BUN 15 Creatinine 0.9 Estimated GFR (MDRD) 93 Glucose 108 H Calcium 9.9 Magnesium 1.9 Total Bilirubin 0.8 AST 15 ALT 32 Alkaline Phosphatase 67 C-Reactive Protein < 0.5 Total Protein 7.5 Albumin 4.6 Globulin 2.9 Albumin/Globulin Ratio 1.6 Lipase 31 TSH 1.69 Total Testosterone Nasal Adenovirus (PCR) Nasal B. parapertussis DNA (PCR) Nasal Coronavir 229E PCR Nasal Coronavir HKU1 PCR Nasal Coronavir NL63 PCR Nasal Coronavir OC43 PCR Nasal Enterovir/Rhinovir PCR Nasal Influenza B PCR Nasal Influenza A PCR Nasal Parainfluen 1 PCR Nasal Parainfluen 2 PCR Nasal Parainfluen 3 PCR Nasal Parainfluen 4 PCR Nasal RSV (PCR) Nasal B.pertussis DNA PCR Nasal C.pneumoniae (PCR) Migue Human Metapneumo PCR Nasal M.pneumoniae (PCR) Nasal SARS-CoV-2 (PCR) 09/19/23 09/19/23 11:42 12:29 WBC RBC Hgb Hct MCV MCH MCHC RDW Plt Count MPV Neut # (Auto) Lymph # (Auto) Gove # (Auto) Eos # (Auto) Baso # (Auto) Absolute Nucleated RBC Nucleated RBC % Sodium Potassium Chloride Carbon Dioxide Anion Gap BUN Creatinine Estimated GFR (MDRD) Glucose Calcium Magnesium Total Bilirubin AST ALT Alkaline Phosphatase C-Reactive Protein Total Protein Albumin Globulin Albumin/Globulin Ratio Lipase TSH Total Testosterone 301 L Nasal Adenovirus (PCR) NOT DETECTED Nasal B. parapertussis DNA (PCR) NOT DETECTED Nasal Coronavir 229E PCR NOT DETECTED Nasal Coronavir HKU1 PCR NOT DETECTED Nasal Coronavir NL63 PCR NOT DETECTED Nasal Coronavir OC43 PCR NOT DETECTED Nasal Enterovir/Rhinovir PCR NOT DETECTED Nasal Influenza B PCR NOT DETECTED Nasal Influenza A PCR NOT DETECTED Nasal Parainfluen 1 PCR NOT DETECTED Nasal Parainfluen 2 PCR NOT DETECTED Nasal Parainfluen 3 PCR NOT DETECTED Nasal Parainfluen 4 PCR NOT DETECTED Nasal RSV (PCR) NOT DETECTED Nasal B.pertussis DNA PCR NOT DETECTED Nasal C.pneumoniae (PCR) NOT DETECTED Migue Human Metapneumo PCR NOT DETECTED Nasal M.pneumoniae (PCR) NOT DETECTED Nasal SARS-CoV-2 (PCR) NOT DETECTED PD Medical Decision Making - ED course Complexity details: re-evaluated patient (MRI was able to be done later this af ternoon through ER. His symptoms are non-acute and thus could be done near- future outpt. He opts for this and left before I could discuss Rx options for migraine/etc in the short term. ), considered differential (evaluation of fatigue can check labs. daytime sleepy and fatigue does sound like sleep apnea symptoms and CPAP may just need longer duration use. Not on meds that would cause sxs. Re: HAs, foggy feeling, etc, MRI would be best imaging to eval brain. Pt desiring imaging. ), d/w patient Departure - Departure Disposition: Left Prior to Disposition Clinical Impression: Fatigue, Recurrent headache Condition: Stable Record reviewed to determine appropriate education?: Yes Forms: PCP List Discharge Date/Time: 09/19/23 14:00
[2023-09-19 13:30] LABS: B. PARAPERTUSSIS- RESP PCR PAN NOT DETECTED; B. PERTUSSIS- RESP PCR PANEL NOT DETECTED; C. PNEUMONIAE- RESP PCR PANEL NOT DETECTED; CORONAVIRUS 229E-RESP PCR NOT DETECTED; CORONAVIRUS HKU1-RESP PCR NOT DETECTED; CORONAVIRUS NL63-RESP PCR NOT DETECTED; CORONAVIRUS OC43-RESP PCR NOT DETECTED; HUMAN METAPNEUMOVIRUS NOT DETECTED; INFLUENZA A- RESP PCR PANEL NOT DETECTED; INFLUENZA B - RESP PCR PANEL NOT DETECTED; M. PNEUMONIAE- RESP PCR PANEL NOT DETECTED; PARAINFLUENZA VIRUS 1 NOT DETECTED; PARAINFLUENZA VIRUS 2 NOT DETECTED; PARAINFLUENZA VIRUS 3 NOT DETECTED; PARAINFLUENZA VIRUS 4 NOT DETECTED; RHINOVIRUS/ENTEROVIRUS NOT DETECTED; RSV- RESP PCR PANEL NOT DETECTED; SARS-CoV-2 -RESP PCR PANEL NOT DETECTED
[2023-09-19 13:35] LABS: CRP - C-REACTIVE PROTEIN < 0.5 mg/dL (<0.5)
[2023-09-19 14:30] LABS: THYROID STIMULATING HORMONE 1.69 uIU/mL (0.34-5.60)
== END 2023-09-19 14:00 | disposition home or self-care (01) ==
LOC: ED 10:31
DX: R53.83 Other fatigue (principal); R51.9 Headache, unspecified; I10 Essential (primary) hypertension; Z79.899 Other long term (current) drug therapy
CPT/HCPCS: 36415; 80053; 83690; 83735; 84403; 84443; 85025; 86140; 87633; 93005; 99283